=== PATIENT | male | born 1960 | race Caucasian/White ===

== ENCOUNTER → 2024-06-18 07:32 | Outpatient (CLI) | payer OTHER, SELFPAY ==
--- NOTE | 2024-06-18 07:35 | DI.US.S_ITS ---
PROCEDURE: US ABDOMEN COMPLETE INDICATIONS: BILAT INGUINAL HERINA / ELEVATED LFT'S TECHNIQUE: Real-time scanning was performed of the abdominal and retroperitoneal organs, with image documentation. COMPARISON: None. FINDINGS: Liver: Measures 18.5 cm. Prominent. Increased in echogenicity. Gallbladder: Nondilated. No stones or sludge. Normal gallbladder wall thickness. No pericholecystic fluid. Negative sonographic Matson's sign. Biliary ducts: Intrahepatic bile ducts are non-dilated. Extrahepatic bile duct caliber measures 5 mm. Normal is 6-7 mm or less in diameter, or 10 mm or less post-cholecystectomy. Pancreas: Visualized portions of the pancreas are sonographically normal. Tail is not well seen. Kidneys: Right kidney measures 11 cm. Left kidney measures 12 cm. No cortical thinning. Lobular contour of the right kidney. No hydronephrosis. No mass seen. Spleen: Measures 10.7 cm. Aorta: No aneurysm. Iliacs: No aneurysm. IVC: Patent. Miscellaneous: No free abdominal fluid. Fat containing left inguinal hernia. Reducible. Hernia neck measures 1.3 cm. IMPRESSION: 1. Increased hepatic echogenicity most consistent with hepatic steatosis. Other forms of hepatocellular disease could have similar appearance. 2. No acute cholecystitis. No gallstones. 3. Fat containing left inguinal hernia. Dictated by: Artem Moncada M.D. on 06/18/2024 at 22:52 Approved by: Artem Moncada M.D. on 06/18/2024 at 22:57
== END ==
LOC: US 07:34
PROVIDERS: Referring Provider Physician Assistant; Visit Provider Physician Assistant
DX: K40.90 Unilateral inguinal hernia, without obstruction or gangrene, not specified as recurrent (principal); R74.8 Abnormal levels of other serum enzymes
CPT/HCPCS: 76700

== ENCOUNTER 2024-09-11 07:38 | Day surgery (SDC) | payer OTHER, SELFPAY ==
[2024-09-06 12:30] VITALS: BMI 32.5
[2024-09-11] VITALS (8 sets, daily range): BP systolic 119–162; BP diastolic 69–94; PULSE 68–96; RESP 11–19; TEMP 36.1–36.8; O2SAT 92–99; BMI 31.9
[2024-09-11] MEDS: ACETAMINOPHEN 325 MG TABLET 975 MG PO (08:23)
[2024-09-11] MEDS: LACTATED RINGERS 1,000 ML 42 ML IV (08:23)
--- NOTE | 2024-09-11 08:38 | PM.HP.1 ---
History of Present Illness History of Present Illness Date Patient Seen: 09/11/24 Time Patient Seen: 08:38 Chief complaint: SDC Narrative: Otilio is a 64 year old man who presents with a left inguinal hernia. See the office note from July for more details. FORMERLY [facility], [facility] Medical History Obstructive sleep apnea of adult (~2002) Snoring (Unknown) Social History marital status: details: dena Mendoza, lives on [address]. 2 kids still at home (13yo, 14yo) number of children: 4 household members: spouse and children lives independently: Yes caregiver/support person: No housing: house pets and animals: Yes (horses and pigs) occupational status: employed Smoking Status: Former smoker alcohol intake: current substance use type: does not use during the past year weight has: remained stable well-balanced diet: daily or most days caffeine: Yes (2-3 cups in AM) Meds Home Medications and Allergies Home Medications Medication Instructions Recorded Confirmed Type ibuprofen 200 mg tablet 600 mg PO Q8HP PRN Pain (Scale 08/15/13 09/11/24 History Score 4-6) ##0 Respironics DreamStation CPAP #1 ea 02/06/19 08/06/24 History atorvastatin 10 mg tablet 5 mg PO DAILY 08/06/24 09/11/24 History esomeprazole magnesium 40 mg 40 mg PO DAILY 08/06/24 09/11/24 History capsule,delayed release ezetimibe 10 mg tablet 10 mg PO DAILY 08/06/24 09/11/24 History omega-3 fatty acids 1,000 mg 2,000 mg PO DAILY 08/06/24 09/11/24 History capsule Allergies Allergy/AdvReac Type Severity Reaction Status Date / Time rosuvastatin [ROSUVASTATIN] AdvReac Intermediate MUSCLE Verified 09/11/24 08:13 ACHES/ BURNING SENSATION Exam Vital Signs (past 8 hours): - 09/11/24 08:26 Temperature 97.0 F L Pulse Rate 68 Respiratory Rate 18 Blood Pressure 162/94 H Pulse Oximetry 99 Oxygen Delivery Method Room Air Oxygen Delivery Method Room Air Const General: healthy appearing Assessment & Plan Assessment and plan (1) Left inguinal hernia: Status: Acute Plan Laparoscopic left inguinal hernia Time-Based Coding :: [TOTAL MINUTES] spent with patient and on the chart (including review of chart, obtaining history, exam, reviewing outside data, placing orders, documenting exam and treatment plan, and counseling patient) on [DATE].
[2024-09-11] MEDS: CEFAZOLIN 2 GM/100 ML PREMIX 100 ML IV (09:15)
--- NOTE | 2024-09-11 09:25 | SUR.OPER ---
Supine on padded OR bed, with pink pad, head on pillow, arms padded and tucked at sides, legs uncrossed, safety belt at thigh, tape over blanket over lower legs .
[2024-09-11] MEDS: BUPIVACAINE 0.5% W/ EPI (PF) 30 ML VIAL INJ (09:31)
--- NOTE | 2024-09-11 10:34 | PM.OP.1 ---
Operative Date/Time/Diagnoses Date of procedure: 09/11/24 Time of procedure: 10:34 Pre-op diagnosis: Left inguinal hernia Post-op diagnosis: same Procedure & Clinicians Procedure: Laparoscopic left inguinal hernia repair with mesh Same procedure as scheduled: Yes Surgeon: Juan Centeno Anesthesia Type: General Operative Notes Procedure in detail: The patient was given preoperative antibiotics. The patient was brought to the operating room, placed on the table in the supine position with the arms tucked and general anesthesia was induced. The abdomen was prepped and draped in the usual fashion. A time-out was performed. A 1 cm transverse incision was created superior to the umbilicus and dissection was carried down to the fascia. The fascia was grasped with a Tania clamp to elevate the abdominal wall. The fascia was scored transversely with cautery. A Peon clamp was used to soria the peritoneum. The Ramón port was placed and the abdomen was insufflated to 15 mmHg. The camera was inserted, there was no evidence of any injury from the entry. There was a direct left inguinal hernia. 5 mm ports were placed under direct vision in the mid left and mid right abdomen. The patient was positioned in Trendelenburg. We created left peritoneal flap. The peritoneum was dissected off the left cord structures and the Tulio's ligament was exposed. A large left Bard mesh was brought in and placed over the defect with the medial edge against Tulio's ligament. We then closed the peritoneal flap with a running 3-0 barbed suture. We took one last look around the abdomen and saw no other abnormalities. The suture was removed and accounted for. The 5 mm ports were removed under direct vision. The abdomen was desufflated. The Ramón port was removed. Additional local was injected into the fascia and the fascial incision was closed with 2 interrupted 0 Vicryl sutures. The skin incisions were closed with 4 Monocryl, Steri-Strips and Band-Aids. EBL: 10 mL Post-operative Condition: stable Disposition: PACU
[2024-09-11] MEDS: HYDROMORPHONE 1 MG INJ IV (10:53)
[2024-09-11] MEDS: OXYCODONE IR 5 MG TABLET PO (10:56)
== END 2024-09-11 11:40 | disposition home or self-care (01) ==
PROVIDERS: PCP Physician Assistant; Referring Provider Surgery; Visit Provider Surgery
PROC: 0YQ64ZZ Repair Left Inguinal Region, Percutaneous Endoscopic Approach (ICD-10-PCS; CPT 49650; principal; 2024-09-11 09:15)
DX: K40.90 Unilateral inguinal hernia, without obstruction or gangrene, not specified as recurrent (principal)
CPT/HCPCS: 49650; J0690; J1100; J1171; J1885; J2405; J2704; J3010